=== PATIENT | male | born 1970 | race Caucasian/White ===

== ENCOUNTER 2020-09-30 08:13 | Outpatient (CLI) | payer OTHER, SELFPAY ==
--- NOTE | ~2020-09-30 | MR_ITS ---
EXAMINATION: MR lumbar spine wo [facility] EXAM DATE: 09/30/2020 09:15 INDICATION: Right-sided low back pain. TECHNIQUE: Multi-sequential, multiplanar MR images of the lumbar spine were obtained without contrast . Sagittal T1, T2, T2 fat saturation images. Axial T2 weighted images. There is no prior study for comparison. FINDINGS: The vertebral bodies are aligned in the AP dimension. There is mild disc disease L5-S1. The vertebral body and disc heights are otherwise well maintained. The conus medullaris terminates at th e T12-L1 level and has normal signal intensity and morphology. There are no suspicious marrow signal abnormalities. Paraspinal soft tissue is unremarkable. Level by level evaluation: T12-L1: Disc does not extend beyond the endplate margin. Facet arthropathy: None. Neural foraminal stenosis: No stenosis. Central canal stenosis: No stenosis. L1-L2: Disc does not extend beyond the endplate margin. Facet arthropathy: Minimal. Neural foraminal stenosis: No stenosis. Central canal stenosis: No stenosis. L2-L3: Disc does not extend beyond the endplate margin. Facet arthropathy: Mild. Neural foraminal stenosis: No stenosis. Central canal stenosis: No stenosis. L3-L4: There is a mild diffuse disc bulge. Facet arthropathy: Mild. Neural foraminal stenosis: Mild bilateral. Central canal stenosis: Mild. L4-L5: There is a mild diffuse disc bulge. Facet arthropathy: Mild to moderate. Neural foraminal stenosis: Mild to moderate bilateral. Central canal stenosis: Mild to moderate. L5-S1: There is a mild to moderate diffuse disc bulge. Facet arthropathy: Moderate right, mild to moderate left. Neural foraminal stenosis: Moderate bilateral, right greater than left. Central canal stenosis: No stenosis. IMPRESSION: L5-S1 moderate bilateral neural foraminal stenosis antegrade facet arthropathy. Reviewed, dictated and finalized at location B. ER SERVICER
== END 2020-09-30 08:14 | disposition home or self-care (01) ==
DX: M54.5 Low back pain (principal); M48.07 Spinal stenosis, lumbosacral region
CPT/HCPCS: 72148

== ENCOUNTER 2020-12-30 15:18 | Outpatient (CLI) | payer OTHER, SELFPAY ==
--- NOTE | ~2020-12-30 | XR_ITS ---
EXAMINATION: XR finger 3rd RT min 2V DATE: 12/30/2020 15:35 INDICATION: Posttraumatic pain at the third digit at the metacarpophalangeal joint. TECHNIQUE: Dorsal palmar, lateral and oblique views of the right third digit were obtained COMPARISON: None FINDINGS: Bone alignment is normal. No fracture. 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 Mild osteoarthritis at the third d istal interphalangeal joint. Mild soft tissue swelling about the third proximal interphalangeal joint . IMPRESSION: 1. No acute osseous abnormality. 2. 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 Reviewed, dictated and finalized at location A. IMPRESSION: 1. No acute osseous abnormality. 2. Moderate triscaphe and mild third distal interphalangeal joint osteoarthriti s.
== END 2020-12-30 15:19 | disposition home or self-care (01) ==
LOC: ANHIMG 15:20
PROVIDERS: PCP Pediatrics; Visit Provider Pediatrics
DX: M19.041 Primary osteoarthritis, right hand (principal)
CPT/HCPCS: 73140